=== PATIENT | female | born 1970 | race Caucasian/White ===

== ENCOUNTER 2017-05-11 15:32 | Emergency (ER) | payer OTHER ==
[~2017-05-11] VITALS: Ht 154.9 cm; Wt 78.0 kg
[2017-05-11 15:43] VITALS: BP_SYST 119
[2017-05-11] MEDS ORDERED: MORPHINE SULFATE 10 MG/ML VIAL IVP ONE (16:15)
[2017-05-11] MEDS ORDERED: DIPHENHYDRAMINE INJ 50 MG/ML VIAL IVP ONE (16:15)
[2017-05-11] MEDS ORDERED: DIPH-TET-PERTUS Vaccine 0.5 ML VIAL (ADACEL) IM ONE (16:30)
[2017-05-11 16:34] LABS: HEMATOCRIT 39.5 % (36-48); HEMOGLOBIN 12.8 g/dL (12.0-16.0); MEAN CORPUSCULAR HEMOGLOBIN 27 pg (27-31); MEAN CORPUSCULAR HGB CONC 33 % (32-36); MEAN CORPUSCULAR VOLUME 82 fL (79.0-98.0); PLATELET COUNT (AUTO) 468 K/uL (130-430); RED BLOOD CELL COUNT(AUTO) 4.81 MIL/uL (4.2-6.2); RED CELL DISTRIBUTION WIDTH 18.5 % (9.0-15.0); WHITE BLOOD COUNT (AUTO) 6.6 K/uL (4.8-10.8)
[2017-05-11 16:44] LABS: CALCIUM 9.6 mg/dL (8.4-11.0); CREATININE 0.86 mg/dL (0.55-1.30)
[2017-05-11 16:49] LABS: ALBUMIN 3.8 g/dL (3.4-4.8); TOTAL BILIRUBIN 0.3 mg/dL (0.0-1.0)
[2017-05-11 16:57] LABS: ATYPICAL LYMPHOCYTES % 0 % (0-0); BAND % (MANUAL) 0 % (0-6); BASOPHILS % (MANUAL) 0 % (0-2); EOSINOPHILS % (MANUAL) 1 % (0-7); LYMPHOCYTES % (MANUAL) 35 % (20-46); MONOCYTES % (MANUAL) 5 % (0-11)
[2017-05-11] MEDS ORDERED: CEFAZOLIN 2 GM IVPB PREMIX 50 ML IV ONE (17:15)
[2017-05-11] MEDS ORDERED: CEFAZOLIN 1 GM IVPB PREMIX 100 ML IV ONE (17:31)
[2017-05-11] MEDS ORDERED: traMADol HCL HCL 50 MG TABLET (ULTRAM) PO ONE (18:00)
[2017-05-11 18:39] VITALS: BP_SYST 122
== END 2017-05-11 18:39 | disposition home or self-care (01) ==
LOC: SED 16:53
DX: T21.21XD Burn of second degree of chest wall, subsequent encounter (principal); M79.7 Fibromyalgia; M81.0 Age-related osteoporosis without current pathological fracture; E78.00 Pure hypercholesterolemia, unspecified; Z88.6 Allergy status to analgesic agent; X10.2XXA Contact with fats and cooking oils, initial encounter; Y93.89 Activity, other specified; Y92.89 Other specified places as the place of occurrence of the external cause; Y99.8 Other external cause status
CPT/HCPCS: 36415; 80053; 81025; 83605; 85007; 85027; 87040; 90471; 90715; 96365; 96372; 96375; 99284; J0690; J1200; J2270; 99285

== ENCOUNTER 2017-05-15 14:52 | Emergency (ER) | payer OTHER ==
[~2017-05-15] VITALS: Ht 154.9 cm; Wt 75.7 kg
[2017-05-15 14:58] VITALS: BP_SYST 132
--- NOTE | 2017-05-15 17:13 | NUR ---
Pt was brought to bed 5 and endorsed by Vasyl
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
--- NOTE | 2017-05-15 17:49 | NUR ---
ER Dr. Castillo at bedside examining patient.
--- NOTE | 2017-05-15 18:29 | NUR ---
Pt resting comfortably in hospital bed.
[2017-05-15] MEDS ORDERED: BACITRACIN 1 GM OINT TP ONE (18:30)
[2017-05-15] MEDS ORDERED: HYDROcodone/ACETAMIN 10-325 MG TAB PO ONE (18:45)
--- NOTE | 2017-05-15 18:52 | NUR ---
Pain medication was given, no adverse reaction noted. Applied bacitracin to infected site, pt tolerated well.
--- NOTE | 2017-05-15 19:12 | NUR ---
Patient given written and verbal discharge instructions and verbalizes understanding. ER MD discussed with patient the results and treatment provided. Patient in stable condition. ID arm band removed. Rx of [place] given. Patient educated on pain management and to follow up with PMD. Pain Scale 4. Dr. Castillo is aware, pain medications given here and prescription home. Opportunity for questions provided and answered.
[2017-05-15 19:13] VITALS: BP_SYST 127
== END 2017-05-15 19:12 | disposition home or self-care (01) ==
LOC: SED 14:52
DX: T21.01XD Burn of unspecified degree of chest wall, subsequent encounter (principal); E78.00 Pure hypercholesterolemia, unspecified; F31.9 Bipolar disorder, unspecified; M06.9 Rheumatoid arthritis, unspecified; M81.0 Age-related osteoporosis without current pathological fracture; Z90.89 Acquired absence of other organs; Z98.84 Bariatric surgery status; X10.2XXD Contact with fats and cooking oils, subsequent encounter
CPT/HCPCS: 99284

== ENCOUNTER 2017-05-26 16:30 | Emergency (ER) | payer OTHER ==
[~2017-05-26] VITALS: Ht 154.9 cm; Wt 79.4 kg
[2017-05-26 16:37] VITALS: BP_SYST 117
[2017-05-26] MEDS ORDERED: DIPHENHYDRAMINE INJ 50 MG/ML VIAL IM ONE (17:30)
[2017-05-26] MEDS ORDERED: MORPHINE SULFATE 10 MG/ML VIAL IM ONE (17:30)
[2017-05-26 18:05] VITALS: BP_SYST 120
== END 2017-05-26 18:05 | disposition home or self-care (01) ==
LOC: SED 16:30
DX: T21.01XD Burn of unspecified degree of chest wall, subsequent encounter (principal); K08.89 Other specified disorders of teeth and supporting structures; I10 Essential (primary) hypertension; M06.9 Rheumatoid arthritis, unspecified; M81.0 Age-related osteoporosis without current pathological fracture; F31.9 Bipolar disorder, unspecified; E78.00 Pure hypercholesterolemia, unspecified; Z98.84 Bariatric surgery status; Z88.8 Allergy status to other drugs, medicaments and biological substances; X10.2XXD Contact with fats and cooking oils, subsequent encounter
CPT/HCPCS: 81025; 96372; 99284; J1200; J2270

== ENCOUNTER 2017-05-30 16:44 | Emergency (ER) | payer OTHER ==
[~2017-05-30] VITALS: Ht 154.9 cm; Wt 81.6 kg
[2017-05-30 17:02] VITALS: BP 114/85; PULSE 70; RESP 18; TEMP 98.3; O2SAT 98
[2017-05-30] MEDS ORDERED: ACETAMINOPHEN 500 MG TABLET PO ONE (17:15)
[2017-05-30 18:48] VITALS: BP 114/85; PULSE 70; RESP 18; TEMP 98.3; O2SAT 98
== END 2017-05-30 18:47 | disposition home or self-care (01) ==
LOC: SED 16:49
DX: T21.21XD Burn of second degree of chest wall, subsequent encounter (principal); I10 Essential (primary) hypertension; M06.9 Rheumatoid arthritis, unspecified; E78.00 Pure hypercholesterolemia, unspecified; M81.0 Age-related osteoporosis without current pathological fracture; F31.9 Bipolar disorder, unspecified; Z98.84 Bariatric surgery status; Z90.89 Acquired absence of other organs; X10.2XXD Contact with fats and cooking oils, subsequent encounter
CPT/HCPCS: 99283

== ENCOUNTER 2017-11-07 17:58 | Emergency (ER) | payer OTHER ==
[~2017-11-07] VITALS: Ht 154.9 cm; Wt 81.6 kg
[2017-11-07 18:03] VITALS: BP_SYST 123
== END 2017-11-07 18:50 | disposition left against medical advice (07) ==
LOC: SED 17:58
DX: R10.84 Generalized abdominal pain (principal); R11.10 Vomiting, unspecified; R19.7 Diarrhea, unspecified; J45.909 Unspecified asthma, uncomplicated; I10 Essential (primary) hypertension; E78.00 Pure hypercholesterolemia, unspecified; M06.9 Rheumatoid arthritis, unspecified; M81.0 Age-related osteoporosis without current pathological fracture; Z53.20 Procedure and treatment not carried out because of patient's decision for unspecified reasons; Z88.6 Allergy status to analgesic agent
CPT/HCPCS: 99281

== ENCOUNTER 2018-05-30 18:20 | Emergency (ER) | payer OTHER ==
[~2018-05-30] VITALS: Ht 154.9 cm; Wt 86.2 kg
[2018-05-30 18:20] VITALS: BP_SYST 120
[2018-05-30] MEDS ORDERED: BACITRACIN 1 GM OINT TP ONE (18:45)
== END 2018-05-30 19:35 | disposition home or self-care (01) ==
LOC: SED 18:20
DX: S61.012A Laceration without foreign body of left thumb without damage to nail, initial encounter (principal); J45.909 Unspecified asthma, uncomplicated; E78.00 Pure hypercholesterolemia, unspecified; F31.9 Bipolar disorder, unspecified; M79.7 Fibromyalgia; I10 Essential (primary) hypertension; W26.0XXA Contact with knife, initial encounter; Y93.89 Activity, other specified; Y92.89 Other specified places as the place of occurrence of the external cause; Y99.8 Other external cause status; Z90.89 Acquired absence of other organs; Z98.84 Bariatric surgery status; Z88.6 Allergy status to analgesic agent
CPT/HCPCS: 99283